=== PATIENT | male | born 1970 | race Caucasian/White ===

== ENCOUNTER 2016-08-28 08:05 | Emergency (ER) | payer MEDICAID ==
[2016-08-28] MEDS ORDERED: DIPHTH,PERTUSS(ACELL),TET VAC 0.5 ML VIAL IM ONE ×2 (08:18→08:32)
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
--- OUTSIDE RECORDS SUMMARY | 2016-08-28 08:39 | XMS REPORT | Continuity of Care Document ---
:1970 Demographics Phone Unavailable Preferred Language Unknown Marital Status Unknown Orthodoxy Affiliation Unknown Race Unknown Ethnic Group Unknown Author Organization [facility] ([facility]) [place] [address] Phone [phone] Care Team Providers Name Role Phone Unavailable Primary Care Provider Unavailable Source Comments This disclosure is being made pursuant to the Care Everywhere program, applicable federal and state laws, and may not contain all informaitonavailable regarding this patient.[facility] ([facility]) Active Allergies and Adverse Reactions Not on File Current Medications Not on file Active Problems Not on file Social History Tobacco Use Types Packs/Day Years Used Date Never Assessed Plan of Care Health Maintenance Due Date Last Done Comments Hepatitis B Vaccine (1 of 3 - Primary Series) 1970 Tdap Vaccine 12/11/1982 Lipid Disorder Screening 12/11/1989 MMR Vaccine 12/11/1989 Td Vaccine 12/11/1989 Influenza Vaccine: Seasonal (#1) 01/05/2016 Results from Last 3 Months Not on file
[2016-08-28 09:59] VITALS: BP 123/69
== END 2016-08-28 10:00 | disposition home or self-care (01) ==
LOC: ER 08:05
DX: S00.91XA Abrasion of unspecified part of head, initial encounter (principal); S60.512A Abrasion of left hand, initial encounter; S60.511A Abrasion of right hand, initial encounter; S50.812A Abrasion of left forearm, initial encounter; S50.811A Abrasion of right forearm, initial encounter; S10.91XA Abrasion of unspecified part of neck, initial encounter; V48.0XXA Car driver injured in noncollision transport accident in nontraffic accident, initial encounter; W22.11XA Striking against or struck by driver side automobile airbag, initial encounter; Y93.9 Activity, unspecified; Y92.410 Unspecified street and highway as the place of occurrence of the external cause; Y99.9 Unspecified external cause status; T14.8 Other injury of unspecified body region; S09.90XA Unspecified injury of head, initial encounter; Z23 Encounter for immunization